=== PATIENT | female | born 1990 | race Caucasian/White ===

== ENCOUNTER 2019-06-25 16:24 | Emergency (ER) | payer OTHER ==
[~2019-06-25] VITALS: Ht 170.2 cm; Wt 54.4 kg
[2019-06-25] MEDS ORDERED: ATIVAN0.5 MG PO (18:05)
[2019-06-25 19:21] LABS: ABSOLUTE NEUTROPHILS 5.5 thou/uL (1.4-8.2); BASOPHILS 0.7 % (0.0-2.0); EOSINOPHILS 0.4 % (0.0-3.0); LYMPHOCYTES 21.3 % (24.0-44.0); MCH 30.8 pg (26.0-34.0); MCHC 33.3 g/dL (28.0-37.0); MCV 92.4 fL (80.0-100.0); MONOCYTES 8.1 % (1.0-8.0); PLATELET COUNT 262 thou/uL (150-400); POLYS 69.5 % (36.0-66.0); RBC 4.55 mil/uL (4.20-5.00); RDW 12.1 % (10.5-14.5); WBC 7.9 thou/uL (4.0-11.0)
[2019-06-25 19:26] LABS: CALCIUM 9.4 mg/dL (8.5-10.1); CREATININE 0.7 mg/dL (0.6-1.0)
[2019-06-25 20:58] LABS: CSF GLUCOSE 67 mg/dL (40-70); CSF PROTEIN 35 mg/dL (15-45)
[2019-06-25 21:47] LABS: CSF CLARITY CLEAR; CSF COLOR COLORLESS; CSF RBC 0 /mm3; CSF WBC 0 /mm3 (0-10)
[2019-06-25 22:40] VITALS: BP 104/50
== END 2019-06-25 23:07 | disposition home or self-care (01) ==
LOC: ER 16:24
PROVIDERS: Emergency Medicine
DX: R20.2 Paresthesia of skin (principal); R20.0 Anesthesia of skin; R06.4 Hyperventilation